=== PATIENT | female | born 1990 | race Caucasian/White ===

== ENCOUNTER 2020-03-12 21:28 | Emergency (ER) | payer BC ==
[~2020-03-12] VITALS: Ht 170.2 cm; Wt 71.8 kg
[2020-03-12] MEDS ORDERED: ondansetron/PF 4mg/2ml inj IV ONE (22:10)
[2020-03-12] MEDS ORDERED: ketorolac tromethamine 15mg/ml inj. IV ONE (22:10)
[2020-03-12] MEDS ORDERED: normal saline 1000ML IV soln IVB ONE (22:10)
[2020-03-12 22:17] LABS: URINE HCG NEGATIVE (NEG)
[2020-03-12 22:20] LABS: CLARITY,URINE SLIGHTLY CLOUDY (Clear); COLOR,URINE YELLOW (Yellow); GLUCOSE, URINE NEGATIVE (Neg); KETONES,URINE NEGATIVE (Neg); LEUKOCYTE ESTERASE ,URINE TRACE (Neg); NITRITES, URINE NEGATIVE (Neg); OCCULT BLOOD,URINE LARGE (Neg); PH,URINE 5.5 (4.8-8.0); PROTEIN,URINE 30 mg/dl (Neg)
[2020-03-12 22:25] LABS: UA COLLECTION TYPE NON-SPECIFIED
[2020-03-12 22:26] LABS: BACTERIA,URINE FEW /HPF (Neg); CAL OXALATE CRYSTALS FEW /HPF (NEGATIVE); RBC,URINE 20-50 /HPF (0-2); SQUAMOUS EPITHELIAL CELL,UR FEW /LPF (FEW)
[2020-03-12] MEDS ORDERED: CefTRIAXone 2gm/D5W 50ml 50 ML IV ONE (22:30)
[2020-03-12 22:33] LABS: BASOPHILS # (AUTO) 0.1 X10'3 (0-0.2); BASOPHILS % (AUTO) 0.7 % (0-1); EOSINOPHILS # (AUTO) 0.1 X10'3 (0-0.9); EOSINOPHILS % (AUTO) 1.2 % (0-6); HEMATOCRIT 42.1 % (35.0-45.0); HEMOGLOBIN 14.5 g/dl (12.0-16.0); LYMPHOCYTES # (AUTO) 1.8 X10'3 (1.1-4.8); LYMPHOCYTES % (AUTO) 17.7 % (21-51); MEAN CORPUSCULAR HEMOGLOBIN 31.6 PG (27.0-31.0); MEAN CORPUSCULAR HGB CONC 34.4 g/dL (33.0-36.5); MEAN CORPUSCULAR VOLUME 91.8 FL (78-98); MONOCYTES # (AUTO) 0.6 X10'3 (0-0.9); MONOCYTES % (AUTO) 6.2 % (2-12); NEUTROPHILS # (AUTO) 7.7 X10'3 (1.8-7.7); NEUTROPHILS % (AUTO) 74.2 % (42-75); PLATELET COUNT 217 X10'3 (140-440); RED BLOOD COUNT 4.59 X10'6 (4.20-5.60); RED CELL DISTRIBUTION WIDTH 12.3 % (11.5-14.5); WHITE BLOOD COUNT 10.3 X10'3 (4.5-11.0)
[2020-03-12 22:45] LABS: ALANINE AMINOTRANSFERASE 16 U/L (12-78); ALBUMIN 3.9 G/DL (3.4-5.0); ALKALINE PHOSPHATASE 67 IU/L (46-116); ANION GAP 6 (8-16); ASPARTATE AMINO TRANSFERASE 10 U/L (10-37); BILIRUBIN,TOTAL 0.2 MG/DL (0.1-1.0); BLOOD UREA NITROGEN 9 MG/DL (7-18); CALCIUM 9.1 MG/DL (8.5-10.1); CHLORIDE 104 MMOL/L (99-107); CREATININE 0.82 MG/DL (0.40-0.90); GLUCOSE 110 MG/DL (70-104); POTASSIUM 3.8 MMOL/L (3.5-5.1); SODIUM 140 MMOL/L (135-145); TOTAL CARBON DIOXIDE 29.7 MMOL/L (24-32); TOTAL PROTEIN 7.8 G/DL (6.4-8.2); eGFR 84 ML/MIN
[2020-03-12] MEDS ORDERED: PHEN-824 PO (23:38)
[2020-03-12] MEDS ORDERED: SULF1TAB49 PO (23:38)
[2020-03-12 23:57] VITALS: BP 124/74
== END 2020-03-12 23:58 | disposition home or self-care (01) ==
LOC: ER 21:29
DX: N39.0 Urinary tract infection, site not specified (principal); R30.9 Painful micturition, unspecified; R10.31 Right lower quadrant pain; R10.32 Left lower quadrant pain; Z87.440 Personal history of urinary (tract) infections; Z79.2 Long term (current) use of antibiotics; Z79.899 Other long term (current) drug therapy
CPT/HCPCS: 36415; 80053; 81001; 81025; 85025; 87088; 96365; 96375; 99284; J0696; J1885; J2405; J7030

== ENCOUNTER 2021-12-22 12:04 | Emergency (ER) | payer BC, MEDICAID ==
[~2021-12-22] VITALS: Ht 170.2 cm; Wt 81.8 kg
[~2021-12-22 12:04] MED LIST: PHEN-824 PO
[2021-12-22] MEDS ORDERED: cyclobenzaprine 10mg tablet PO ONE (16:05)
[2021-12-22 16:15] VITALS: BP 105/71
[2021-12-22] MEDS ORDERED: CYCL-1 PO (17:14)
== END 2021-12-22 18:29 | disposition home or self-care (01) ==
LOC: ER 12:04
DX: M54.31 Sciatica, right side (principal); Z79.899 Other long term (current) drug therapy
CPT/HCPCS: 72100; 99283